=== PATIENT | male | born 1955 | race Two or more races ===

== ENCOUNTER 2024-12-27 12:40 | Outpatient (CLI) | payer OTHER ==
--- NOTE | 2024-12-27 14:39 | RADIOLOGY REPORT ---
CLINICAL INFORMATION: PAIN IN RIGHT SHOULDER. TECHNIQUE: Multisequence multiplanar MRI images of the right shoulder were obtained without contrast . COMPARISON: None FINDINGS: Acromioclavicular joint: There is moderate acromioclavicular hypertrophy and moderate edema. There is Type 2 acromion. Small amount of fluid in the subacromial / subdeltoid bursa. Rotator cuff tendons: Mild tendinosis of the distal supraspinatus and infraspinatus tendons. Small pa rtial-thickness bursal surface tear of the insertional footprint near the junction of the supraspinat us and infraspinatus tendons measuring up to 0.6 cm in AP dimension and 0.4 cm in transverse dimensio n. Mild articular surface fraying of the posterior fibers of the distal infraspinatus tendon just pro ximal to the insertion. Mild tendinosis of the distal subscapularis tendon with mild articular surfac e fraying just proximal to its insertion. Teres minor tendon is intact. Biceps tendon: No significant tendinosis. No evidence of attrition or tear. Labrum: Fraying of the posterior superior labrum with possible small tear. There is adjacent paralab ral cyst measuring up to 0.5 cm. Bones: No fracture or focal marrow contusion. Muscles: Normal muscle bulk. No atrophy. Other: No other significant findings. IMPRESSION: 1. Rotator cuff tendinosis with partial-thickness bursal surface tear of the insertional footprint ne ar the junction of the supraspinatus and infraspinatus tendons. Mild articular surface fraying of the distal infraspinatus and subscapularis tendons. 2. Moderate acromioclavicular hypertrophy with mild subacromial/subdeltoid bursitis. 3. Fraying of the posterior superior labrum with possible small tear and adjacent paralabral cyst. Co rrelate with clinical findings. MR arthrogram could be considered to further characterize if clinical ly indicated.
== END 2024-12-27 23:59 | disposition home or self-care (01) ==
LOC: MRI02 12:40
PROVIDERS: ATTEND Physician Assistant
DX: S43.431A Superior glenoid labrum lesion of right shoulder, initial encounter (principal); M75.101 Unspecified rotator cuff tear or rupture of right shoulder, not specified as traumatic; M25.511 Pain in right shoulder; M89.311 Hypertrophy of bone, right shoulder; X58.XXXA Exposure to other specified factors, initial encounter; Y93.89 Activity, other specified; Y92.89 Other specified places as the place of occurrence of the external cause; Y99.8 Other external cause status
CPT/HCPCS: 73221